=== PATIENT | female | born 1990 | race Caucasian/White ===

== ENCOUNTER 2020-08-24 08:54 | Outpatient (REF) | payer OTHER, SELFPAY ==
[2020-08-24 09:04] LABS: COVID-19 Test Positive (Negative)
== END 2020-08-24 08:55 | disposition home or self-care (01) ==
LOC: HO.EMPCOV 08:54
PROVIDERS: Visit Provider Internal Medicine
DX: Z20.822 Contact with and (suspected) exposure to COVID-19 (principal)
CPT/HCPCS: 36415; 87635; C9803

== ENCOUNTER 2023-08-05 10:22 | Emergency (ER) | payer OTHER, BC, SELFPAY ==
[2023-08-05 11:15] VITALS: BP 147/75; PULSE 87; RESP 18; TEMP 36.8; O2SAT 100; BMI 28.5
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
== END 2023-08-05 13:10 | disposition home or self-care (01) ==
LOC: HO.ED 11:26
PROVIDERS: Emergency Provider Emergency Medicine; PCP Physician Assistant
DX: Z04.1 Encounter for examination and observation following transport accident (principal); M54.2 Cervicalgia
CPT/HCPCS: 99281